=== PATIENT | male | born 1950 | race Caucasian/White ===

== ENCOUNTER → 2016-06-03 | Outpatient (CLI) | payer MEDICARE, BC ==
[~2016-06-03] MED LIST: ALBUTEROL20 ml INH; ASPIRIN PO; CALCIUM + D 6001 TA1 PO; FLEXERIL PO; HYDROCODONE-APA1 T55 PO; KEFLEX500 M2 PO; VICODIN 5/1 TAB 5/50 PO
--- NOTE | ~2016-06-03 | EKG ---
PATIENT: BRANDY ESCALANTE UNIT #: [id number] Ventricular Rate: 58 BPM Atrial Rate: 58 BPM P-R Interval: 136 ms QRS Duration: 84 ms Q-T Interval: 422 ms QTC Calculation(Bezet): 414 ms P [place]: 11 degrees Calculated R [place]: 62 degrees Calculated T [place]: 23 degrees Diagnosis Line: Sinus bradycardia Diagnosis Line: Nonspecific T wave abnormality Diagnosis Line: Otherwise normal ECG Diagnosis Line: When compared with ECG of 09-OCT-2013 13:19, Diagnosis Line: Premature ventricular complexes are no longer Diagnosis Line: Present Diagnosis Line: Premature atrial complexes are no longer Present Diagnosis Line: Confirmed by SAMIA DRISCOLL MD ([id number]) on 06/09/2016 Diagnosis Line: 11:08:42 PM INTERPRETING MD: AMERICO GONCALVES
[2016-06-03 08:37] LABS: HEMOGLOBIN 15.8 gm/dL (13.0-16.0); MEAN CELL VOLUME 89.1 FL (83-96); MEAN CORPUSCULAR HGB CONC 33.7 g/dL (30-36); MEAN PLATELET VOLUME 8.1 FL (6.5-11.5); RED BLOOD COUNT 5.27 X10e (3.90-5.60); RED CELL DISTRIBUTION WIDTH 13.2 % (11.0-15.5); WHITE BLOOD COUNT 8.4 X10e3 (4.0-10.5)
[2016-06-03 08:59] LABS: BLOOD UREA NITROGEN 31 mg/dL (9-23); BUN/CREATININE RATIO 25.83; CALCIUM SERUM 9.4 mg/dL (8.4-10.2); CARBON DIOXIDE 30 mmol/L (22-31); CHLORIDE 106 mmol/L (100-111); CREATININE SERUM 1.2 mg/dL (0.6-1.4); GLOM FILT RATE Estimated ABOVE60 mL/min (>60); GLUCOSE FASTING 97 mg/dL (70-110); SODIUM 141 mmol/L (135-145)
== END | disposition home or self-care (01) ==
LOC: SEKG 08:26
PROVIDERS: Internal Medicine Medical Oncology
DX: Z01.818 Encounter for other preprocedural examination (principal); H72.92 Unspecified perforation of tympanic membrane, left ear
CPT/HCPCS: 36415; 80048; 85027; 93005